=== PATIENT | female | born 1950 | race Caucasian/White ===

== ENCOUNTER 2021-05-19 03:54 | Emergency (ER) | payer OTHER, BC ==
--- OUTSIDE RECORDS SUMMARY | 2021-05-19 03:57 | XMS REPORT | Continuity of Care Document ---
:1950 Author Organization [facility] t Address [address] Garcia. [address] [place] [address] Care Team Providers Name Role Phone Wade AGARWAL Primary Care Physician Kalen AGARWAL, Nav Attending Clinician Forest AGARWAL, P. Attending Clinician WADE Attending Clinician Unavailable José Luis AGARWAL, Masha Attending Clinician Mkii AGARWAL Attending Clinician Kassandra CASH POSTING SPECIALIST, Emilia Attending Clinician Tariq Attending Clinician Unavailable Payers Payer Name Policy Type Policy Effective Date Expiration Date Sour ce Number MEDICAREMEDICARE PART [id number] 2015 [facility] A AND 00:00:00 [facility] [id number] 2015 [place] BCBS COMMERCIALBCBS [id number] 2015 [facility] MEDICARE 2 00:00:00 Hospital [id number] 2015-PresentComm ercial Problems Condition Condition Condition Status Onset Resolution Last Treating Co mments Source Name Details Category Date Date Treatment Clinician Date Screening Screening Disease Active Overview: Methodi for breast for breast 3- Form[facility]in [facility] cancer cancer 00:00: g of this Hospita 00 note l might be different from the original. Followed by OBGYN in [place] 08/2020 normal Gastroesop Gastroesop Disease Active Overview : Methodi hageal hageal 1-[address] reflux reflux 00:00: g of this Hospita disease disease 00 note l without without might be esophagiti esophagiti different s s from the original. 2017 diagnosed after evaluatio n for atypical chest pain attribute d at the time to GERD treated with complete resolutio n of symptoms Did not need any medicatio n at the present time Chronic Chronic Disease Active 2019-10 Overview: Meth reema pain of pain of 0-[address] both knees both knees 00:00: g of this Hospita 00 note l might be different from the original. Bilateral knee pain. I informed Ms. Villatoro that she has severe bilateral knee OA. I educated her on conservat helder treatment options and she elected to start a course of meloxicam as well as try bilateral knee steroid injection s. We briefly discussed total knee replaceme nt surgery in case she is not be satisfied with conservat helder treatment options. I will plan to see Ms. Villatoro again in 3 months to discuss further plan of care1chron ic pain , advised surgery by orthopedi c but like to postpone surgery for now . Better with steroids injection . 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 Will not refill meloxicam + referred back to orthopedi c for safer alternati ve 12/26 : followed by Orthopedi c using mobic very rarely aware of risk on BP / stroke / heart disease Pure Pure Disease Active 2017-10 Overview: Method i hyperchole hyperchole - Formattin st sterolemia sterolemia 00:00: g of this Hospita 00 note l might be different from the original. No FH of CAD Never been treated in the past 10/25/2020 : ldl 135 HDL 77 Hormone Hormone Disease Active 2017-10 Overview: Meth reema replacemen replacemen -[address] t therapy t therapy 00:00: g of this H ospita (HRT) (HRT) 00 note l might be different from the original. Used for vaginal dryness 10/25/2020 : has been off estrace for at least 1 year ; c/o recurrent dry vaginal area with painful sexual activity would like to go back on estrace she was previousl y on estrace oral therapy and vaginal cream paln pros and cons of HRT and local therapy: we will reassess 3/21 Evaluated by OBGYN at [place] : atrophy cream prescribe d Essential Essential Disease Active 2017-10 Overview: Methodi hypertensi hypertensi 1-[address] on on 00:00: g of this Hospita 00 note l might be different from the original. Seen once in 2018, since than medicatio n refilled by her GI 10/25/2020 : Coming back to establish care ; still losartan/ hctz 100/12.5 mg 1 tab daily11/01 bP borderlin e in the office : readings from home 142/84-13 9/76 - 137/77- 125/71 : same med ; advised against using NSAID and mobic on regular basis Atypical Atypical Disease Active Overview: Pr thodi chest pain chest pain 7-[address] 00:00: g of this Hospita 00 note l might be different from the original. 2017 Treated with PPI for 1 year now off asymptoma tic Allergies, Adverse Reactions, Alerts Allergy Allergy Status Severity Reaction(s) Onset Inactive Treating Comm ents Source Name Type Date Date Clinician Ibuprofe Propensi Active Hives Rash on Metho di n ty to 7-[address] adverse 00:00: Hospita reaction 00 l s to drug Acetamin Propensi Active Hives Hives on Meth reema ophen ty to 7-[address] adverse 00:00: Hospita reaction 00 l s to drug Family History Family Member Diagnosis Comments Start Date Stop Date Source Natural brother Alcohol abuse [facility] Natural father [facility] Maternal grandfather Heart disease [facility] Maternal grandmother Osteoporosis [facility] Natural mother Osteoporosis [facility] Paternal grandfather [facility] Paternal grandmother [facility] Natural sister Dementia [facility] sister Diabetes [facility] Natural sister Tuberculosis [facility] Social History Social Habit Start Date Stop Date Quantity Comments Source Cigarettes smoked 2021-02-03 2021-02-[address] current (pack per 00:00:00 00:00:00 Hospita l day) - Reported Cigarette 2021-02-03 2021-02-03 [place] pack-years 00:00:00 00:00:00 Hospital Tobacco use and 2021-02-03 2021-02-03 Never used [place] exposure 00:00:00 00:00:00 Hospital Alcohol intake 2021-02-03 2021-02-03 Current drinker [facility] dist 00:00:00 00:00:00 of alcohol Hospital (finding) Alcohol Comment 2018-08-21 2018-08-21 occasional [place] 00:00:00 00:00:00 Hospital History of tobacco 2009-10-08 2012-10-08 Current smoker [facility] use 00:00:00 00:00:00 Hospital Sex Assigned At [birth year] [place] 00:00:00 00:00:00 Hospital Smoking Status Start Date Stop Date Source Former smoker 2021-02-03 00:00:00 2021-02-03 00:00:00 [facility] Medications Ordered Filled Start Stop Current Ordering Indication Dosage Frequency Signature Comments Components Source Medication Medication Date Date Medication? Clinician (SIG) Name Name meloxicam Yes TAKE 1 Method i (MOBIC) 15 7-[address] mg tablet 00:00: MOUTH Hospita 00 EVERY DAY l meloxicam 2020- No TAKE 1 Metho di (MOBIC) 15 4-19 07-[address] mg tablet 00:00: 00:00 MOUTH Hospit a 00 :00 EVERY DAY l cholecalcif 2020- No 1000U QD Take 1,000 Methodi asa, 3-23 03-[address] vitamin D3, 16:14: 00:00 mouth Hosp jesse (VITAMIN 26 :00 daily. l D3) 1,000 unit capsule aspirin Yes 81mg QD Take 81 mg Meth reema (ECOTRIN) 3-[address] 81 MG 15:47: daily. Hospita enteric 43 l coated tablet diphenhydrA Yes 25mg QD Take 25 mg Methodi MINE 3-[address] (BENADRYL) 15:47: nightly as H ospita 25 mg 43 needed for l tablet sleep. cholecalcif Yes [id number] 1 tab M ethodi asa, 3-[address] vitamin D3, 00:00: Hospit a 5,000 unit 00 l capsule estradioL Yes [id number] Apply 1 Methodi (Estrace) 2-22 gram (1/2 st 0.01 % (0.1 00:00: finger) Hos janelle mg/gram) 00 amount to l vaginal the cream opening of the vagina twice a week at night meloxicam 2020- No TAKE 1 Metho di (MOBIC) 15 -27 04-[address] mg tablet 00:00: 00:00 MOUTH Hospit a 00 :00 EVERY DAY l cycloSPORIN 2020- No 1[drp] Q.5D Administer Methodi E -18 10-[address] (RESTASIS) 18:31: 00:00 both eyes H ospita 0.05 % 23 :00 2 (two) l ophthalmic times a emulsion day. meloxicam 2019-10 No 15mg QD Take 1 Metho di (Mobic) 15 0-05 - tablet (15 st mg tablet 00:00: 00:00 mg total) Ho spita 00 :00 by mouth l daily. estradiol 2017-10 TAKE 1 Metho di (ESTRACE) 2-11 11-[address] 0.5 MG 00:00: 00:00 MOUTH Hospita tablet 00 :00 EVERY DAY l estradiol 2017-10- No .5g Q.5W Insert 0.5 M ethodi (ESTRACE) 1-15 -[address] 0.01 % (0.1 00:00: 00:00 vagina 2 H ospita mg/gram) 00 :00 (two) l vaginal times a cream week. Sunday & Sunday [facility] 2017-10 Yes 1{tbl} QD Take 1 Me thodi drochloroth 1-[address] iazide 00:00: mouth Hospita (HYZAAR) 00 daily. l 100-12.5 mg per tablet Immunizations Ordered Immunization Filled Immunization Date Status Commen ts Source Name Name PFIZER COVID-19 MRNA 2021-01-10 Completed [facility] VACCINATION 00:00:00 Hospital PFIZER COVID-19 MRNA 2020-12-17 Completed [facility] VACCINATION 00:00:00 Hospital FLUZONE HIGH-DOSE PF 2020-09-14 Completed [facility] 00:00:00 [facility] FLUZONE HIGH-DOSE PF 2020-08-22 Completed [facility] 00:00:00 Hospital Pneumococcal 2019-07-07 Completed [place] Conjugate 13-Valent 00:00:00 Hospi tiny FLUZONE HIGH-DOSE PF 2019-07-07 Completed [facility] 00:00:00 [facility] FLUZONE HIGH-DOSE PF 2018-08-21 Completed [facility] 00:00:00 Hospital Vital Signs Vital Name Observation Time Observation Value Comments Source Body height 2021-02-03 19:30:00 162.6 cm [facility] Body weight 2021-02-03 19:30:00 68.493 kg [facility] BMI 2021-02-03 19:30:00 25.92 kg/m2 [facility] Systolic blood 2020-12-28 15:44:00 137 mm[Hg] [facility] pressure Diastolic blood 2020-12-28 15:44:00 83 mm[Hg] [facility] pressure Heart rate 2020-12-28 15:44:00 71 /min [facility] Body temperature 2020-12-28 15:44:00 36.89 Jazmyn [facility] Oxygen saturation in 2020-12-28 15:44:00 95 /min [facility] Arterial blood by Pulse oximetry Respiratory rate 2020-10-25 18:30:00 18 /min [facility] Procedures Procedure Date / Time Performing Clinician Source Performed SD ARTHROCENTESIS 2021-02-03 19:30:00 Vladimir Higuera [facility] ASPIR&/INJ MAJOR JT/BURSA W/O US BONE DENSITY 2021-01-03 20:09:05 Axel Olvera [facility] VITAMIN D 25 HYDROXY 2020-11-29 21:09:00 Chaya Ordonez [facility] LEVEL Masha OBTAIN MEDICAL RECORDS 2020-11-01 00:00:00 Provider, [facility] CBC WITH PLATELET AND 2020-10-25 19:28:00 [facility] DIFFERENTIAL COMPREHENSIVE METABOLIC 2020-10-25 19:28[facility]00 [facility] PANEL HEMOGLOBIN A1C 2020-10-25 19:28[facility]00 [facility] LIPID PANEL 2020-10-25 19:28:00 [facility] MICROALBUMIN / CREATININE 2020-10-25 19:28:00 [facility] URINE RATIO THYROID STIMULATING 2020-10-25 19:28:00 Axel Olvera [facility] HORMONE XR KNEE 4+ VW BILATERAL 2020-07-12 19:37:51 Vladimir Higuera [facility] [place] ARTHROCENTESIS 2020-07-12 19:00:00 Vladimir Higuera [facility] ASPIR&/INJ MAJOR JT/BURSA W/O US Plan of Care Planned Activity Planned Date Details Comments Source Future Scheduled Test Hepatitis C screening [facility] (procedure) [code = 257009550] Future Scheduled Test SHINGLES VACCINES (#1) [facility] [code = SHINGLES VACCINES (#1)] Future Scheduled Test 65+ PNEUMOCOCCAL Me [facility] VACCINE (2 of 2 - PPSV23) [code = 65+ PNEUMOCOCCAL VACCINE (2 of 2 - PPSV23)] Future Scheduled Test COLONOSCOPY SCREENING [facility] [code = COLONOSCOPY SCREENING] Future Scheduled Test INFLUENZA VACCINE [code [facility] = INFLUENZA VACCINE] Future Scheduled Test BREAST CANCER SCREENING [facility] [code = BREAST CANCER SCREENING] Encounters Start End Encounter Admission Attending Care Care Encounter Source Date/Time Date/Time Type Type Clinicians Facility Department ID 2021-04-18 2021-04-18 Refill Vladimir Higuera 1.2.840.1 [id number] Methodi 00:00:00 00:00:[address] 3.430.2.7 Hospit a .3.064224 l .8 2021-02-03 2021-02-03 Office Vladimir Higuera 1.2.840.1 [id number] Methodi 14:09:36 15:40:18 Visit Nav 81608.1.[address] 3.430.2.7 Hospit a .3.737142 l .8 2021-02-03 2021-02-03 Outpatient [facility] [id number] [place] 00:00:00 00:00:[address] 2021-02-03 2021-02-03 Travel 1.2.840.1 1.2.664.405 [id number] Methodi 00:00:00 00:00:[address] 3.430.2.7 0.2.7.3.698 Ho spita .3.675840 084.8 l .8 2021-01-24 2021-01-24 Vladimir Rubio 1.2.840.1 [id number] Methodi 00:00:00 00:00:[address] 3.430.2.7 Hospit a .3.198953 l .8 2021-01-10 2021-01-10 Clinical Forest 1.2.840.1 [id number] Methodi 14:08:12 14:18:47 Support Daryn 26859.1.[address] P. 3.430.2.7 Hospit a .3.366616 l .8 2021-01-10 2021-01-10 [facility] [id number] [place] 00:00:00 00:00:[address] 2021-01-03 2021-01-03 [facility] [id number] [place] 00:00:00 00:00:00 AXEL [address] 2021-01-03 2021-01-03 Travel 1.2.840.1 1.2.001.580 1524 [id number] Methodi 00:00:00 00:00:[address] 3.430.2.7 0.2.7.3.698 Ho spita .3.095110 084.8 l .8 2020-12-28 2020-12-28 Office Wade, 1.2.840.1 [id number] Methodi 10:38:35 11:20:50 Visit Axel 07788.1.[address] 3.430.2.7 Hospit a .3.988231 l .8 2020-12-28 2020-12-28 Travel 1.2.840.1 1.2.983.218 6186 [id number] Methodi 00:00:00 00:00:[address] 3.430.2.7 0.2.7.3.698 Ho spita .3.215022 084.8 l .8 2020-12-28 2020-12-28 Outpatient WADE [facility] [id number] [place] 00:00:00 00:00:[address] AXEL [address] 2020-12-17 2020-12-17 Clinical 1.2.840.1 [id number] Methodi 13:49:27 13:58:[address] 3.430.2.7 Hospit a .3.149863 l .8 2020-12-17 2020-12-17 Travel 1.2.840.1 1.2.937.944 2882 [id number] Methodi 00:00:00 00:00:[address] 3.430.2.7 0.2.7.3.698 Ho spita .3.468651 084.8 l .8 2020-12-17 2020-12-17 Outpatient [facility] [id number] [place] 00:00:00 00:00:[address] 2020-11-29 2020-11-29 Office Axel Olvera 1.2.840.1 [id number] Methodi 13:53:14 15:55:01 Visit Chaya Ordonez 30264.1.[address] 3.430.2.7 Hospit a .3.546579 l .8 2020-11-29 2020-11-29 Travel 1.2.840.1 1.2.369.747 7989 [id number] Methodi 00:00:00 00:00:[address] 3.430.2.7 0.2.7.3.698 Ho spita .3.594351 084.8 l .8 2020-11-29 2020-11-29 [facility] [id number] [place] 00:00:00 00:00:00 AXEL [address] 2020-11-03 2020-11-03 Refill Vladimir Higuera 1.2.840.1 [id number] Methodi 00:00:00 00:00:[address] 3.430.2.7 Hospit a .3.407934 l .8 2020-11-03 2020-11-03 Refill Vladimir Higuera 1.2.840.1 [id number] Methodi 00:00:00 00:00:[address] 3.430.2.7 Hospit a .3.415981 l .8 2020-11-01 2020-11-01 Office [facility], 1.2.840.1 [id number] Methodi 12:24:02 15:59:31 Visit Axel 59596.1.[address] 3.430.2.7 Hospit a .3.455300 l .8 2020-11-01 2020-11-01 Orders Provider, 1.2.840.1 [id number] Methodi 00:00:00 00:00:00 Only Historical 19896.1.1 842 s t 3.430.2.7 Hospit a .3.710039 l .8 2020-11-01 2020-11-01 Travel 1.2.840.1 1.2.543.882 6082 [id number] Methodi 00:00:00 00:00:[address] 3.430.2.7 0.2.7.3.698 Ho spita .3.649278 084.8 l .8 2020-11-01 2020-11-01 [facility] [id number] [place] 00:00:00 00:00:00 AXEL [address] 2020-10-25 2020-10-25 Lab Wade, 1.2.840.1 [id number] Methodi 13:28:41 13:33:[address] 3.430.2.7 Hospit a .3.204021 l .8 2020-10-25 2020-10-25 Office Wade, 1.2.840.1 [id number] 86664 Methodi 12:27:49 13:21:26 Visit Axel 76857.1.[address] 3.430.2.7 Hospit a .3.117538 l .8 2020-10-25 2020-10-25 Outpatient [facility] [id number] [place] 00:00:00 00:00:00 AXEL [address] 2020-10-25 2020-10-25 Outpatient [facility] [id number] [place] 00:00:00 00:00:[address] AXEL [address] 2020-10-25 2020-10-25 Travel 1.2.840.1 1.2.597.112 [id number] [id number] Methodi 00:00:00 00:00:[address] 3.430.2.7 0.2.7.3.698 Ho spita .3.635905 084.8 l .8 2020-10-15 2020-10-15 Travel 1.2.840.1 1.2.059.199 1747 [id number] Methodi 00:00:00 00:00:[address] 3.430.2.7 0.2.7.3.698 Ho spita .3.080403 084.8 l .8 2020-10-12 2020-10-12 Telephone Xiomarabrisa, 1.2.840.1 [id number] 2100 [id number] Methodi 00:00:00 00:00:[address] Kireyian 3.430.2.7 Hospi ta .3.429906 l .8 2020-10-08 2020-10-08 RefVladimir Wong 1.2.840.1 [id number] Methodi 00:00:00 00:00:[address] 3.430.2.7 Hospit a .3.448235 l .8 2020-10-06 2020-10-06 Office Vladimir Higuera 1.2.840.1 [id number] Methodi 15:02:27 17:05:25 Visit Nav 35789.1.[address] 3.430.2.7 Hospit a .3.798583 l .8 2020-10-06 2020-10-06 Outpatient VLADIMIR HIGUERA [facility] [id number] [place] 00:00:00 00:00:[address] 2020-10-06 2020-10-06 Travel 1.2.840.1 1.2.774.838 6770 [id number] Methodi 00:00:00 00:00:[address] 3.430.2.7 0.2.7.3.698 Ho spita .3.632134 084.8 l .8 2020-07-12 2020-07-12 Office Vladimir Higuera 1.2.840.1 [id number] Methodi 13:59:40 16:13:32 Visit Nav 32933.1.[address] 3.430.2.7 Hospit a .3.887807 l .8 2020-07-12 2020-07-12 Outpatient VLADIMIR HIGUERA [facility] [id number] [place] 00:00:00 00:00:[address] 2020-07-12 2020-07-12 Outpatient VLADIMIR HIGUERA [facility] [id number] [place] 00:00:00 00:00:[address] 2020-07-12 2020-07-12 Travel 1.2.840.1 1.2.225.393 2663 [id number] Methodi 00:00:00 00:00:[address] 3.430.2.7 0.2.7.3.698 Ho spita .3.032938 084.8 l .8 2020-07-12 2020-07-12 Neeraj Potter, 1.2.840.1 [id number] Methodi 00:00:00 00:00:00 Only Carin 18494.1.[address] [facility]430.2.7 [facility].70[facility] .8 Results Test Description Test Test Results Result Source Time Comments Comments Bilateral Knee 2021-01- Vladimir Higuera MD [facility] Large Joint 29 02/03/2021 6:58 Hospit al Arthrocentesis: 19:30:00 PMBilateral Knee Large knee, Bilateral Joint Arthrocentesis: knee knee, Bilateral kneePerformed by: Vladimir Higuera MDAuthorized by: Vladimir Higuera MD Consent given by: PatientSite marked: the procedure site was marked Timeout: prior to procedure the correct patient, procedure, and site was verified Indications: PainLocation: KneeSite: Bilateral kneePrep: patient was prepped and draped in usual sterile fashion Ultrasound guided?: No Fluoroscopically guided?: No Needle size (left): 22 GNeedle size (right): 22 GLeft side approach: AnterolateralRight side approach: AnterolateralLeft side medications: 2 mL bupivacaine HCl 0.25 % (2.5 mg/mL); 80 mg methylPREDNISolone acetate 80 mg/mL; 2 mL lidocaine 10 mg/mL (1 %)Right side medications: 2 mL bupivacaine HCl 0.25 % (2.5 mg/mL); 80 mg methylPREDNISolone acetate 80 mg/mL; 2 mL lidocaine 10 mg/mL (1 %)Left aspirate: ClearRight aspirate: ClearPatient tolerance (left): Patient tolerated the procedure well with no immediate complicationsPatient tolerance (right): Patient tolerated the procedure well with no immediate complications Vitamin D 25 hydroxy level 2020-11-30 20:24:00 Test Item Value Reference Range Interpretation Comme nts Vitamin D, 25-hydroxy (test code = 1988-3) 56 ng/mL 30-100 CARLOS (test code = CARLOS) RAC (test code = RAC) [facility] urine [id number] 22:10:00 Test Item Value Reference Range Interpretation Comments Creatinine, urine, 46.8 mg/dL Not Estab. random (test code = 2161-8) Albumin, urine <3.0 Not Estab. ug/mL (test code = 97868-4) Microalbumin/creati <6 See_Comment [Automa ivan message] nine ratio (test The system which code = 9318-7) generated thi s result transmitted ref erence range: 0 - 29 m g/g creat. The refe rence range was not u sed to interpret this result as normal/abnor mal. CARLOS (test code = CARLOS) [facility] [id number] 15:10:00 Test Item Value Reference Range Interpretation Comments Hemoglobin A1C (test code = 4548-4) 5.4 % 4.8-5.6 CARLOS (test code = CARLOS) [facility] metabolic [id number] 13:09:00 Test Item Value Reference Range Interpretation Comments Glucose (test code = 93 mg/dL 65-99 2345-7) BUN (test code = 11 mg/dL 8-27 3094-0) Creatinine (test 0.63 mg/dL 0.57-1.00 code = 2160-0) EGFR Non-Afr. 91 mL/min/1.73 >59 [place] (test code = 2775) EGFR 105 >59 [place] (test code mL/min/1.73 = 2774) BUN/creatinine ratio 12-28 (test code = 3097-3) Sodium (test code = 142 mmol/L 742-593 7249-2) Potassium (test code 4.1 mmol/L 3.5-5.2 = 2823-3) Chloride (test code 101 mmol/L 96-106 = 2075-0) CO2 (test code = 26 mmol/L 20-29 8-9) Calcium (test code = 9.7 mg/dL 8.7-10.3 87396-0) Protein (test code = 7.0 g/dL 6.0-8.5 2885-2) Albumin, S (test 4.6 g/dL 3.8-4.8 code = 1751-7) Globulin, total 2.4 g/dL 1.5-4.5 (test code = 02381-8) Albumin/globulin 1.2-2.2 ratio (test code = 1759-0) Total bilirubin 0.6 mg/dL 0.0-1.2 (test code = 1975-2) Alkaline phosphatase See_Comment [Autom ated message] (test code = 6768-6) The sys tem which generated this result transmit ivan reference range : 39 - 117 IU/L. The reference range was not used to interpret this result as normal/abnormal . AST (test code = See_Comment [Automated message] 1920-8) The system IPextreme generated this result transmit ivan reference range : 0 - 40 IU/L. The reference range was not used to interpret this result as normal/abnormal . ALT (test code = See_Comment [Automated message] 1742-6) The system [employer]extreme generated this result transmit ivan reference range : 0 - 32 IU/L. The reference range was not used to interpret this result as normal/abnormal . CARLOS (test code = CARLOS) [facility]land[facility] [id number] 13:09:00 Test Item Value Reference Range Interpretation Comments Cholesterol (test code = 2093-3) 228 mg/dL 100-199 H Triglycerides (test code = 2571-8) 67 mg/dL 0-149 HDL cholesterol (test code = 77 mg/dL >39 5-9) VLDL cholesterol booker (test code = 12 mg/dL 5-40 23223-9) LDL Chol Calc (NIH) (test code = 139 mg/dL 0-99 H 96158-0) Non-HDL cholesterol (test code = 151 mg/dL 0-129 H 40484-1) CARLOS (test code = CARLOS) Lab Interpretation (test code = Abnormal 79819-7) [facility] with platelet and [id number] 13:09:00 Test Item Value Reference Range Interpretation Comments WBC (test code = See_Comment [Automated message] 6690-2) The system IPextreme generated this result transmitted ref erence range: 3.4 - 10 .8 x10E3/uL. The reference range was not used to int erpret this result as normal/abnormal . RBC (test code = 789-8) See_Comment [Au tomated message] The system [employer]extreme generated this result transmitted ref erence range: 3.77 - 5 .28 x10E6/uL. The reference range was not used to int erpret this result as normal/abnormal . HGB (test code = 718-7) 14.8 g/dL 11.1-15.9 HCT (test code = 45.0 % 34.0-46.6 4544-3) MCV (test code = 787-2) 93 fL 79-97 MCH (test code = 785-6) 30.6 pg 26.6-33.0 MCHC (test code = 32.9 g/dL 31.5-35.7 786-4) RDW (test code = 788-0) 12.0 % 11.7-15.4 Platelet count (test See_Comment [Autom ated message] code = 777-3) The system whi ch generated this result transmitted ref erence range: 150 - 45 0 x10E3/uL. The reference range was not used to int erpret this result as normal/abnormal . Neutrophils (test code 57 % Not Estab. = 770-8) Lymphocytes (test code 31 % Not Estab. = 736-9) Monocytes (test code = 10 % Not Estab. 5905-5) Eosinophils (test code 1 % Not Estab. = 713-8) Basophils (test code = 1 % Not Estab. 706-2) Neutrophils, absolute See_Comment [Auto mated message] (test code = 751-8) The syst em which generated this result transmitted ref erence range: 1.4 - 7. 0 x10E3/uL. The reference range was not used to int erpret this result as normal/abnormal . Lymphocytes, absolute See_Comment [Auto mated message] (test code = 731-0) The syst em which generated this result transmitted ref erence range: 0.7 - 3. 1 x10E3/uL. The reference range was not used to int erpret this result as normal/abnormal . Monocytes, absolute See_Comment [Automa ivan message] (test code = 742-7) The syst em which generated this result transmitted ref erence range: 0.1 - 0. 9 x10E3/uL. The reference range was not used to int erpret this result as normal/abnormal . Eosinophils, absolute See_Comment [Auto mated message] (test code = 711-2) The syst em which generated this result transmitted ref erence range: 0.0 - 0. 4 x10E3/uL. The reference range was not used to int erpret this result as normal/abnormal . Basophils, absolute See_Comment [Automa ivan message] (test code = 704-7) The syst em which generated this result transmitted ref erence range: 0.0 - 0. 2 x10E3/uL. The reference range was not used to int erpret this result as normal/abnormal . Immature granulocytes 0 % Not Estab. (test code = 65082-8) Immature grans (abs) See_Comment [Autom ated message] (test code = 96657-6) The sy stem which generated this result transmitted ref erence range: 0.0 - 0. 1 x10E3/uL. The reference range was not used to int erpret this result as normal/abnormal . CARLOS (test code = CARLOS) [facility] [id number] 12:09:00 Test Item Value Reference Range Interpretation Comments TSH (test code = See_Comment [Automated message] The 92096-2) system which ge nerated this result transmit ivan reference range : 0.450 - 4.500 uIU/mL. T he reference range was not u sed to interpret this result as normal/abnormal . CARLOS (test code = CARLOS) [facility] Large Joint Arthrocentesis: knee, Bilateral [id number] 19:00:00CrVladimir blanchard MD 07/15/2020 8:49 PMBilateral Knee Large Joint Arthrocentesis: knee, Bilateral kneeConsent given by: patientSite marked: site markedTimeout: Immediately prior to procedure a time out was called to verify the correct patient, procedure, equipment, telecommunications support and site/side marked as required Supporting DocumentationIndications: pain Procedure DetailsPreparation: Patient was prepped and draped in the usual sterile fashionUltrasound guided: noPlatelet Rich Plasma Used: no PRP UsedLocation: knee - Bilateral knee Right side:Needle size: 22 GApproach: anterolateralRight knee medications administered: 2 mL bupivacaine 0.25 % (2.5 mg/mL); 80 mg methylPREDNISolone acetate 80 mg/mL; 2 mL lidocaine 10 mg/mL (1 %)Aspirate: clearPatient tolerance: patient tolerated the procedure well with no immediate complications Left side:Needle size: 22 GApproach: anterolateralLeft knee medications administered: 2 mL bupivacaine 0.25 % (2.5 mg/mL); 80 mg methylPREDNISolone acetate 80 mg/mL; 2mL lidocaine 10 mg/mL (1 %)Aspirate: clearPatient tolerance: patient tolerated the procedure well with no immediate complicationsTenriism Hospital
--- NOTE | 2021-05-19 05:36 | ER ---
Nurse's Notes [facility] Name: Yamile Lucas Age: 70 yrs Sex: Female : 1950 Arrival Date: 05/19/2021 Time: 03:58 Bed Waiting Private MD: Diagnosis: Neck pain;Post-operative pain Presentation: 05/19 04:14 Chief complaint: Patient states: I had surgery Sunday for my eyes and a cyst removal tl1 and since surgery both sides of my neck have been hurting. Coronavirus screen: Client denies travel out of the [place] in the last 14 days. At this time, the client does not indicate any symptoms associated with coronavirus-19. Ebola Screen: Patient negative for fever greater than or equal to 101.5 degrees Fahrenheit, and additional compatible Ebola Virus Disease symptoms Patient denies exposure to infectious person. Patient denies travel to an Ebola-affected area in the 21 days before illness onset. Initial Sepsis Screen: Does the patient meet any 2 criteria? No. Patient's initial sepsis screen is negative. Does the patient have a suspected source of infection? No. Patient's initial sepsis screen is negative. Risk Assessment: Do you want to hurt yourself or someone else? Patient reports no desire to harm self or others. Onset of symptoms was May 17, 2021. 04:14 Method Of Arrival: Ambulatory tl1 04:14 Acuity: KEIRY 3 tl1 Historical: - Allergies: 04:18 Ibuprofen; tl1 04:18 Tylenol; tl1 - Home Meds: 04:18 losartan Oral [Active]; tl1 - PMHx: 04:18 Hypertension; tl1 - PSHx: 04:18 Appendectomy; tl1 - Immunization history:: Client reports receiving the 2nd dose of the Covid vaccine, Date received: February 04, 2021. - Social history:: Smoking status: Patient denies any tobacco usage or history of. - Family history:: not pertinent. - Hospitalizations: : No recent hospitalization is reported. Screenin:08 Abuse screen: Denies threats or abuse. Nutritional screening: No deficits noted. bb Tuberculosis screening: No symptoms or risk factors identified. Fall Risk None identified. Assessment: 06:08 General: Appears in no apparent distress. uncomfortable, pt has post-op swelling to bb face with ecchymosis and is alert and oriented x 1 she is seen by this RN at discharge. Pt verbalized understanding of and agrees to plan of care discharge instructions given pt ambulated with steady gait to exit accompanied by spouse. Vital Signs: 04:16 BP 157 / 69; Pulse 81; Resp 16; Temp 98(O); Pulse Ox 97% ; Weight 65.77 kg; Height 5 tl1 ft. 4 in. (162.56 cm); Pain 0/10; 06:08 BP 164 / 80; Pulse 84; Resp 18 S; Temp 98.1(O); Pulse Ox 97% on R/A; bb 04:16 Body Mass Index 24.89 (65.77 kg, 162.56 cm) tl1 ED Course: 03:58 Patient arrived in ED. bp1 04:16 Triage completed. tl1 04:19 Arm band placed on right wrist. tl1 04:45 Ren Steele MD is Attending Physician. rn 05:01 CT C Spine In Process Unspecified. EDMS 06:08 Patient has correct armband on for positive identification. bb 06:08 No provider procedures requiring assistance completed. Patient did not have IV access bb during this emergency room visit. Administered Medications: No medications were administered Outcome: 05:35 Discharge ordered by . rn 06:08 Discharged to home ambulatory, with family. bb 06:08 Condition: stable 06:08 Discharge instructions given to patient, Instructed on discharge instructions, follow up and referral plans. Demonstrated understanding of instructions, follow-up care. 06:11 Patient left the ED. bb Signatures: Dispatcher [employer] EDMS Kira Díaz RN RN bb Ren Steele MD MD rn Lasagna, Tonya, RN RN tl1 Elsa Langford bp1
--- NOTE | 2021-05-19 05:37 | EDPHYS ---
Physician Documentation [facility] Name: Yamile Lucas Age: 70 yrs Sex: Female : 1950 Arrival Date: 05/19/2021 Time: 03:58 Bed Waiting Private MD: ED Physician Ren Steele HPI: 05/19 04:59 This 70 yrs old Female presents to ER via Ambulatory with complaints of Neck rn Pain, >24Hrs Old. 05:00 The patient or guardian complains of pain, that is acute. The symptoms are located on rn the Posterior neck. Onset: The symptoms/episode began/occurred 3 day(s) ago. Associated signs and symptoms: Pertinent negatives: chills, constipation, fever, headache, bladder incontinence, bowel incontinence, nausea, numbness, tingling, vomiting, weakness. The pain does not radiate. Modifying factors: The symptoms are alleviated by remaining still, the symptoms are aggravated by movement, pressure. Severity of symptoms: At their worst the symptoms were moderate, in the emergency department the symptoms are unchanged. The patient has not experienced similar symptoms in the past. The patient has been recently seen by a physician:. Patient reports had blepharoplasty last Sunday, since the surgery he has been experiencing neck pain. Denies injury. Denies radiation. No pain in anterior neck or trouble swallowing. Denies fever or illness. Reports worse with neck movement.. Called her surgeon who told her pain likely related to arthritis, but does not want her to take anti-inflammatories. Historical: - Allergies: 04:18 Ibuprofen; tl1 04:18 Tylenol; tl1 - Home Meds: 04:18 losartan Oral [Active]; tl1 - PMHx: 04:18 Hypertension; tl1 - PSHx: 04:18 Appendectomy; tl1 - Immunization history:: Client reports receiving the 2nd dose of the Covid vaccine, Date received: February 04, 2021. - Social history:: Smoking status: Patient denies any tobacco usage or history of. - Family history:: not pertinent. - Hospitalizations: : No recent hospitalization is reported. ROS: 05:00 Constitutional: Negative for fever, chills, and weight loss, Neck: Positive for neck rn pain negative for swelling or injury Cardiovascular: Negative for chest pain, palpitations, and edema, Respiratory: Negative for shortness of breath, cough, wheezing, and pleuritic chest pain, Back: Negative for injury and pain, MS/Extremity: Negative for injury and deformity, Neuro: Negative for headache, weakness, numbness, tingling, and seizure. Exam: 05:00 Constitutional: This is a well developed, well nourished patient who is awake, alert, rn sitting in waiting room chair. Bandages in multiple planes around face and eyes. Head/Face: Normocephalic Eyes: Periocular surgical scars and inflammation as expected few days postop. No signs of infection Neck: No midline cervical neck tenderness. Positive mild tenderness and pain with turning neck along paracervical regions. MS/ Extremity: Pulses equal, no cyanosis. Neuro: Awake and alert, GCS 15, oriented to person, place, time, and situation. Cranial nerves II-XII grossly intact. Motor strength 5/5 in all extremities. Sensory grossly intact. Cerebellar exam normal. Vital Signs: 04:16 BP 157 / 69; Pulse 81; Resp 16; Temp 98(O); Pulse Ox 97% ; Weight 65.77 kg; Height 5 tl1 ft. 4 in. (162.56 cm); Pain 0/10; 06:08 BP 164 / 80; Pulse 84; Resp 18 S; Temp 98.1(O); Pulse Ox 97% on R/A; bb 04:16 Body Mass Index 24.89 (65.77 kg, 162.56 cm) tl1 MDM: 04:45 Patient medically screened. rn 05:33 Differential diagnosis: arthritis, Cervical Discogenic Pain Cervical Facet Syndrome rn cervical strain, torticollis, Post op pain. Data reviewed: vital signs, nurses notes, radiologic studies, CT scan. Counseling: I had a detailed discussion with the patient and/or guardian regarding: the historical points, exam findings, and any diagnostic results supporting the discharge/admit diagnosis, radiology results, the need for outpatient follow up, to return to the emergency department if symptoms worsen or persist or if there are any questions or concerns that arise at home. Special discussion: I discussed with the patient/guardian in detail that at this point there is no indication for admission to the hospital. It is understood, however, that if the symptoms persist or worsen the patient needs to return immediately for re-evaluation. ED course: CT shows mild subcutaneous emphysema within the face and neck. No signs of deep infection. No fluid collection. Patient does not feel ill. Likely subcutaneous emphysema related to the facial surgery/procedure with some tracking posteriorly. Patient afebrile and nontoxic-appearing. Will DC home with follow-up with her surgeon and return precautions.. 06:22 ED course: Upon reevaluation patient states did not just have blepharoplasty she also rn had a face and neck lift.. 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
[2021-05-19 06:16] VITALS: O2SAT 97
[2021-05-19 06:18] VITALS: BP 164/80; TEMP 98.1
--- NOTE | 2021-05-19 12:19 | RAD REPORT ---
EXAM DESCRIPTION: CT - C Spine Wo Con - 05/19/2021 6:31 am CLINICAL HISTORY: The patient is 70 years old and is Female; PAIN TECHNIQUE: Axial computed tomography images of the cervical spine without intravenous contrast. Sa gittal and coronal reformatted images were created and reviewed. This CT exam was performed using o ne or more of the following dose reduction techniques: automated exposure control, adjustment of th e mA and/or kV according to patient size, and/or use of iterative reconstruction technique. COMPARISON: No relevant prior studies available. FINDINGS: Vertebrae: No acute cervical spine fracture or subluxation. Discs/spinal canal/neural foramina: Fusion of the posterior elements on the right at C4-5. No spinal canal stenosis. Soft tissues: Scattered subcutaneous emphysema within the face and posterior neck. Mild scattere d subcutaneous fat stranding. Suggestion of a possible skin defect along the upper left posterior lat eral neck. IMPRESSION: 1. No acute cervical spine fracture or subluxation. 2. Scattered subcutaneous emphysema within the face and posterior neck. Mild scattered subcutaneous fat stranding. Suggestion of a possible skin defect along the upper left posterior lateral neck. Electronically signed by: Andrea Hughes MD 05/19/2021 5:27 AM CDT Due to temporary technical issues with the PACS/Fluency reporting system, reports are being signed by the in house radiologist without review as a courtesy to ensure prompt reporting. The interpreting r adiologist is fully responsible for the content of the report.
== END 2021-05-19 06:11 | disposition home or self-care (01) ==
LOC: ER 03:54
DX: G89.18 Other acute postprocedural pain (principal); I10 Essential (primary) hypertension; Z88.6 Allergy status to analgesic agent
CPT/HCPCS: 72125; 99283

== ENCOUNTER 2024-11-06 09:36 | Emergency (ER) | payer OTHER, BC ==
[2024-11-06] MEDS ORDERED: NA CHLORIDE 0.9% 1,000 ML ONE (10:16)
[2024-11-06 10:33] LABS: Absolute Lymphocytes (CBC) 1.1 K/uL (0.7-4.9); Absolute Monocytes 0.7 K/uL (0.1-1.3); Absolute Neutrophil 2.1 K/uL (1.8-8.0); Basophils % 0.3 % (0-1.3); Eosinophils % 0.7 % (0-4.4); Hematocrit 43.9 % (36.0-45.0); Hemoglobin 14.9 g/dL (12.0-15.0); Lymphocytes % 28.7 % (15.3-44.8); MCH 31.6 pg (27.0-35.0); MCHC 33.9 g/dL (32.0-36.0); MCV 93.2 fL (80-100); MPV 8.4 fL (7.6-11.3); Monocytes % 17.3 % (3.3-12.3); Nucleated Red Blood Cells % 0.2 % (0-0); Platelets 165 thou/uL (152-406); RBC Red Blood Cell Count 4.71 M/uL (3.86-4.86); Red Cell Distribution Width 12.9 % (12.1-15.2)
[2024-11-06 10:43] LABS: Albumin 3.3 g/dL (3.4-5.0); Anion Gap 13.3 mEq/L (5.0-15.0); Bilirubin Direct 0.2 mg/dL (0-0.2); Bilirubin Indirect, Calculated 0.6 mg/dL (0.2-0.8); Bilirubin Total 0.8 mg/dL (0.2-1.0); Globulin 3.4 g/dL (2.3-3.5); Potassium 3.3 mEq/L (3.5-5.1); Protein, Total 6.7 g/dL (6.4-8.2)
--- NOTE | 2024-11-06 11:29 | RAD REPORT ---
EXAMINATION: ONE VIEW CHEST XR CLINICAL INDICATION: Female, 74 years old.,weakness TECHNIQUE: Frontal chest projection is submitted. Examination is limited by patient positioning and t echnique. COMPARISON: 08/10/2017 FINDINGS: The lungs are well inflated and clear. No pneumothorax or sizable effusion. The heart is normal in s ize. Mediastinal contours are unremarkable. IMPRESSION: No acute intrathoracic abnormalities.
[2024-11-06 12:06] LABS: Specific Gravity 1.007 (1.005-1.030); Sqamous Epithelial <5 /HPF (None Seen); Urine Bacteria <20 /HPF (<20); Urine Bilirubin NEGATIVE (Negative); Urine Blood Negative (Negative); Urine Clarity Turbid (Clear); Urine Color Light-Yellow (Yellow); Urine Culture Reflex Order NOT NEEDED; Urine Glucose NEGATIVE (Negative); Urine Ketones 1+ (Negative); Urine Micro Reflex YN NO BILL MICROSCOPIC; Urine Nitrite NEGATIVE (Negative); Urine Protein NEGATIVE (Negative); Urine RBC None Seen /HPF (None Seen); Urine Urobilinogen Normal (Normal); Urine WBC <5 /HPF (<5); Urine pH 6.5 (5.0-7.0)
--- NOTE | 2024-11-06 13:06 | ER ---
Nurse's Notes [facility] Name: Yamile Lucas Age: 74 yrs Sex: Female : 1950 Arrival Date: 11/06/2024 Time: 09:36 Bed 19 Private MD: Diagnosis: Acute upper respiratory infection, unspecified Presentation: 11/06 09:54 Chief complaint: Patient states: GENERAL WEAKNESS AND LOSS OF APPETITE. Coronavirus db screen: Client denies travel out of the [place] in the last 14 days. At this time, the client does not indicate any symptoms associated with coronavirus-19. Ebola Screen: Patient negative for fever greater than or equal to 101.5 degrees Fahrenheit, and additional compatible Ebola Virus Disease symptoms Patient denies exposure to infectious person. Patient denies travel to an Ebola-affected area in the 21 days before illness onset. No symptoms or risks identified at this time. Initial Sepsis Screen: Does the patient meet any 2 criteria? No. Patient's initial sepsis screen is negative. Does the patient have a suspected source of infection? No. Patient's initial sepsis screen is negative. Risk Assessment: Do you want to hurt yourself or someone else? Patient reports no desire to harm self or others. Onset of symptoms was November 06, 2024. 09:54 Method Of Arrival: Ambulatory db 09:54 Acuity: KEIRY 3 db Triage Assessment: 09:55 General: Appears in no apparent distress. comfortable, Behavior is calm, cooperative. db Pain: Denies pain. Historical: - Allergies: 09:55 Ibuprofen; db 09:55 Tylenol; db - PMHx: 09:55 Hypertension; db - PSHx: 09:55 Appendectomy; db - Immunization history:: Adult Immunizations unknown. - Infectious Disease History:: Denies. - Social history:: Smoking status: Patient denies any tobacco usage or history of. - Family history:: not pertinent. Screenin:24 [facility] ED Fall Risk Assessment (Adult) History of falling in the last 3 months, db including since admission No falls in past 3 months (0 pts) Confusion or Disorientation No (0 pts) Intoxicated or Sedated No (0 pts) Impaired Gait No (0 pts) Mobility Assist Device Used No (0 pt) Altered Elimination No (0 pt) Score/Fall Risk Level 0 - 2 = Low Risk Oriented to surroundings, Maintained a safe environment. 13:50 Abuse screen: Denies threats or abuse. Denies injuries from another. Nutritional db screening: No deficits noted. Tuberculosis screening: No symptoms or risk factors identified. Assessment: 09:56 Reassessment: SEE TRIAGE FOR INITIAL ASSESSMENT. db 12:01 Reassessment: Patient appears in no apparent distress at this time. Patient and/or db family updated on plan of care and expected duration. Pain level reassessed. Patient is alert, oriented x 3, equal unlabored respirations, skin warm/dry/pink. 13:30 Reassessment: Patient appears in no apparent distress at this time. Patient and/or db family updated on plan of care and expected duration. Pain level reassessed. Patient is alert, oriented x 3, equal unlabored respirations, skin warm/dry/pink. General: Appears in no apparent distress. comfortable, Behavior is calm, cooperative. Neuro: Level of Consciousness is awake, alert, obeys commands, Oriented to person, place, time, situation. Vital Signs: 09:54 BP 166 / 90; Pulse 88; Resp 17; Temp 97.1; Pulse Ox 96% ; db 10:05 BP 141 / 80; Pulse 79; Resp 24; Pulse Ox 95% ; db 11:40 BP 151 / 87; Pulse 71; Resp 20; Pulse Ox 95% ; db 13:00 BP 149 / 82; Pulse 66; Resp 20; Pulse Ox 96% ; db ED Course: 09:40 Patient arrived in ED. im 09:40 Russell Spear MD is Attending Physician. rt 09:54 Jaimie Still, RN is Primary Nurse. db 09:55 Triage completed. db 09:55 Arm band placed on Patient placed in an exam room. db 09:56 Patient has correct armband on for positive identification. Pulse ox on. NIBP on. db 10:17 EKG done, by ED staff, reviewed by Russell Spear MD. Inserted saline lock: 22 gauge nh2 in right forearm, using aseptic technique. Blood collected. Flushed with 10 mL NS. 10:17 Basic Metabolic Panel Sent. nh2 10:17 CBC with Diff Sent. nh2 10:17 LFT's Sent. nh2 10:17 Troponin HS Sent. nh2 10:17 Magnesium Sent. nh2 10:40 XRAY Chest (1 view) In Process Unspecified. EDMS 13:50 Provided Education on: DISCHARGE AND FOLLOWUP. db 13:50 No provider procedures requiring assistance completed. IV discontinued, intact, db bleeding controlled, No redness/swelling at site. Administered Medications: 10:23 Drug: NS 0.9% IV 1000 ml IV at 1000 ml once; to be given as a bolus over 60 minutes db Route: IV; Rate: 1000 ml; Site: right forearm; 13:45 Follow up: Response: No adverse reaction; IV Status: Completed infusion; IV Intake: db 1000ml 13:25 Drug: Decadron - Dexamethasone IVP 10 mg IVP once Route: IVP; Site: right antecubital; db 13:45 Follow up: Response: No adverse reaction db Medication: 13:50 VIS not applicable for this client. db Intake: 13:45 IV: 1000ml; Total: 1000ml. db Outcome: 13:05 Discharge ordered by . rt 13:50 Discharged to home ambulatory, with family, db 13:50 Condition: stable 13:50 Discharge instructions given to patient, family, Instructed on discharge instructions, follow up and referral plans. 13:53 Patient left the ED. db Signatures: Dispatcher [employer] Jaimie Sneed RN RN db Russell Spear MD MD rt Kelsi Aleman Jr, Felix nh2
--- NOTE | 2024-11-06 13:06 | EDPHYS ---
Physician Documentation [facility] Name: Yamile Lucas Age: 74 yrs Sex: Female : 1950 Arrival Date: 11/06/2024 Time: 09:36 Bed 19 Private MD: ED Physician Russell Spear HPI: 11/06 09:56 This 74 yrs old Female presents to ER via Ambulatory with complaints of Flu Symptoms. rt 09:56 Patient presents to the ED with 9 days of feeling poorly, flulike symptoms. She rt initially had a cough, body aches. She now feels generally weak, has poor appetite. Denies other acute complaints at this time, symptoms are moderate in severity, no other aggravating or alleviating factors.. Historical: - Allergies: 09:55 Ibuprofen; db 09:55 Tylenol; db - PMHx: 09:55 Hypertension; db - PSHx: 09:55 Appendectomy; db - Immunization history:: Adult Immunizations unknown. - Infectious Disease History:: Denies. - Social history:: Smoking status: Patient denies any tobacco usage or history of. - Family history:: not pertinent. ROS: 09:56 Cardiovascular: Negative for chest pain, palpitations, and edema, Abdomen/GI: Negative rt for abdominal pain, nausea, vomiting, diarrhea, and constipation, Back: Negative for injury and pain, MS/Extremity: Negative for injury and deformity, Skin: Negative for injury, rash, and discoloration, 09:56 Constitutional: Positive for fatigue, malaise, 09:56 Respiratory: Positive for cough, Negative for shortness of breath, Exam: 09:56 Constitutional: This is a well developed, well nourished patient who is awake, alert, rt and in no acute distress. Head/Face: Normocephalic, atraumatic. Chest/axilla: Normal chest wall appearance and motion. Nontender with no deformity. No lesions are appreciated. Cardiovascular: Regular rate and rhythm with a normal S1 and S2. No gallops, murmurs, or rubs. Normal PMI, no JVD. No pulse deficits. Respiratory: Lungs have equal breath sounds bilaterally, clear to auscultation and percussion. No rales, rhonchi or wheezes noted. No increased work of breathing, no retractions or nasal flaring. Abdomen/GI: Soft, non-tender, with normal bowel sounds. No distension or tympany. No guarding or rebound. No evidence of tenderness throughout. Skin: Warm, dry with normal turgor. Normal color with no rashes, no lesions, and no evidence of cellulitis. MS/ Extremity: Pulses equal, no cyanosis. Neurovascular intact. Full, normal range of motion. Neuro: Awake and alert, GCS 15, oriented to person, place, time, and situation. Cranial nerves II-XII grossly intact. Motor strength 5/5 in all extremities. Sensory grossly intact. Cerebellar exam normal. Normal gait. 10:15 ECG was reviewed by the Attending Physician. rt Vital Signs: 09:54 BP 166 / 90; Pulse 88; Resp 17; Temp 97.1; Pulse Ox 96% ; db 10:05 BP 141 / 80; Pulse 79; Resp 24; Pulse Ox 95% ; db 11:40 BP 151 / 87; Pulse 71; Resp 20; Pulse Ox 95% ; db 13:00 BP 149 / 82; Pulse 66; Resp 20; Pulse Ox 96% ; db MDM: 09:47 Medical Screening Exam initiated rt 13:11 Differential Diagnosis Flu, viral syndrome, pneumonia, electrolyte disturbance, anemia, rt dysrhythmia, urinary tract infection. Data reviewed: vital signs, nurses notes, lab test result(s), EKG, radiologic studies. I considered the following discharge prescriptions or medication management in the emergency department Medications were administered in the Emergency Department. See MAR. Independent interpretation of the following test(s) in the Emergency Department X-Ray: My interpretation is No infiltrate seen on interpretation of x-ray images. Test considered but Not performed: CT: Low suspicion for pulmonary embolus, CT angiogram not indicated. Care significantly affected by the following chronic conditions: Hypertension. Counseling: I had a detailed discussion with the patient and/or guardian regarding the historical points, exam findings, and any diagnostic results supporting the discharge/admit diagnosis, lab results, radiology results, the need for outpatient follow up, to return to the emergency department if symptoms worsen or persist or if there are any questions or concerns that arise at home. Response to treatment: the patient's symptoms have mildly improved after treatment. 11/06 09:55 Order name: Basic Metabolic Panel; Complete Time: 11:40 rt 11/06 09:55 Order name: CBC with Diff; Complete Time: 11:40 rt 11/06 09:55 Order name: LFT's; Complete Time: 11:40 rt 11/06 09:55 Order name: Magnesium; Complete Time: 11:40 rt 11/06 09:55 Order name: Troponin HS; Complete Time: 11:40 rt 11/06 09:55 Order name: UAM; Complete Time: 12:54 rt 11/06 09:55 Order name: XRAY Chest (1 view); Complete Time: 11:40 rt 11/06 09:55 Order name: EKG; Complete Time: 09:55 rt 11/06 09:55 Order name: Cardiac monitoring; Complete Time: 10:06 rt 11/06 09:55 Order name: EKG - Nurse/Tech; Complete Time: 10: rt 11/06 09:55 Order name: IV Saline Lock; Complete Time: 10:17 rt 11/06 09:55 Order name: Labs collected and sent; Complete Time: 10:17 rt 11/06 09:55 Order name: O2 Per Protocol; Complete Time: 10:23 rt 11/06 09:55 Order name: O2 Sat Monitoring; Complete Time: 10:23 rt EC:15 Rate is 78 beats/min. Rhythm is regular, Normal Sinus Rhythm with No ectopy. QRS [place] rt is Normal. [place] interval is normal. QRS interval is normal. QT interval is normal. No Q waves. T waves are Normal. No ST changes noted. Interpreted by me. Administered Medications: 10:23 Drug: NS 0.9% IV 1000 ml IV at 1000 ml once; to be given as a bolus over 60 minutes db Route: IV; Rate: 1000 ml; Site: right forearm; 13:45 Follow up: Response: No adverse reaction; IV Status: Completed infusion; IV Intake: db 1000ml 13:25 Drug: Decadron - Dexamethasone IVP 10 mg IVP once Route: IVP; Site: right antecubital; db 13:45 Follow up: Response: No adverse reaction db Disposition Summary: 11/06/24 13:05 Discharge Ordered Notes: Location: Home rt Problem: new rt Symptoms: have improved rt Condition: Stable rt Diagnosis - Acute upper respiratory infection, unspecified rt Followup: rt - With: Private Physician - When: 2 - 3 days - Reason: Discharge Instructions: - Discharge Summary Sheet rt - Viral Respiratory Infection rt Forms: - Medication Reconciliation Form rt - Antibiotic Education rt - Prescription Opioid Use rt - Patient Portal Instructions rt - Leadership Thank You Letter rt Signatures: Dispatcher [employer] Jaimie Sneed RN RN Russell Osborne MD MD rt
[2024-11-06] MEDS ORDERED: dexAMETHasone 10 MG/ML VIAL ONE (13:34)
[2024-11-06 22:09] VITALS: TEMP 97.1
[2024-11-06 22:12] VITALS: BP 149/82; O2SAT 96
--- NOTE | 2024-11-11 12:34 | EKG ---
Test Date: 2024-11-06 Test Time: 10:02:28 It Support Specialist: GEOFFREY MEASUREMENT RESULTS: Intervals: Rate: 78 [place]: 148 QRSD: 74 QT: 360 QTc: 410 [place]: P: 78 [place]: 148 QRS: -2 T: 72 INTERPRETIVE STATEMENTS: Normal sinus rhythm Normal ECG Compared to ECG 04/09/2017 04:47:10 Sinus bradycardia no longer present ST (T wave) deviation no longer present Possible ischemia no longer present Electronically Signed On 11-11-24 12:22:39 BILLING DEPARTMENT SUPERVISOR by Benito Mckeon
== END 2024-11-06 13:53 | disposition home or self-care (01) ==
LOC: ER 09:36
DX: J06.9 Acute upper respiratory infection, unspecified (principal); I10 Essential (primary) hypertension
CPT/HCPCS: 96361; 85025; 81001; 80048; 36415; 83735; 80076; 84484; 71045; 96374; 99284; J1100; J7030; 93005